=== PATIENT | male | born 1945 | race African-American/Black ===

== ENCOUNTER 2024-08-29 14:06 | Emergency (ER) | payer OTHER ==
[~2024-08-29] VITALS: Ht 170.2 cm; Wt 69.0 kg
[2024-08-29 14:18] VITALS: TEMP 37.3; O2SAT 98
[2024-08-29] MEDS ORDERED: NAPR-677 MT (16:00)
[2024-08-29 22:22] VITALS: BP 153/72; PULSE 63; RESP 16; O2SAT 98
== END 2024-08-29 22:22 | disposition home or self-care (01) ==
LOC: ER 14:06
DX: S09.8XXA Other specified injuries of head, initial encounter (principal); E11.9 Type 2 diabetes mellitus without complications; I10 Essential (primary) hypertension; I67.82 Cerebral ischemia; Z79.1 Long term (current) use of non-steroidal anti-inflammatories (NSAID); W19.XXXA Unspecified fall, initial encounter; Y93.89 Activity, other specified; Y92.129 Unspecified place in nursing home as the place of occurrence of the external cause; Y99.8 Other external cause status
CPT/HCPCS: 72170; 99284

== ENCOUNTER 2024-11-09 08:24 | Inpatient (IN) | payer MEDICARE, OTHER ==
[~2024-11-09] VITALS: Ht 167.6 cm; Wt 60.4 kg
[~2024-11-09 08:24] MED LIST: NAPR-677 MT
[2024-11-09 08:26] VITALS: O2SAT 97
[2024-11-09 09:35] LABS: CREATININE 0.8 mg/dL (0.6-1.3); UREA NITROGEN BLOOD 19 mg/dL (9-23)
[2024-11-09 09:36] LABS: ETHANOL BLOOD < 10 mg/dL (<10); TROPONIN I HIGH SENSITIVITY 4 ng/L (3.0-53)
[2024-11-09 09:50] LABS: BASOPHILS % 0.3 % (0.0-2.0); EOSINOPHILS % 1.3 % (0.0-5.0); HEMATOCRIT. 40.7 % (42.0-52.0); HEMOGLOBIN. 13.3 g/dL (14.0-18.0); LYMPHOCYTES % 14.5 % (20.0-50.0); MEAN PLATELET VOLUME 9.8 fl (7.4-10.4); MONOCYTES % 8.6 % (2.0-8.0); NEUTROPHILS % 75.3 % (40.0-76.0); PLATELET 216 x1000/uL (130-400); RED BLOOD CELL COUNT 4.74 mill/uL (4.7-6.1); RED CELL DISTRIBUTION WIDTH 15.4 % (11.6-14.6)
[2024-11-09] MEDS ORDERED: ACETAMINOPHEN 325MG TABLET PO PRN (11:00)
[2024-11-09] MEDS ORDERED: HYDROCODONE/ACETAMINOPHEN 5/325MG TABLET PO PRN (11:00)
[2024-11-09] MEDS ORDERED: ONDANSETRON HCL 4MG/2ML INJ IV PRN (11:00)
[2024-11-09] MEDS ORDERED: MAGNESIUM/ALUMINUM HYDROXIDE/SIMETHICONE 30ML UDC PO PRN (11:00)
[2024-11-09] MEDS ORDERED: DEXTROSE 50% WATER 50ML SYRINGE IV PRN (11:00)
[2024-11-09] MEDS ORDERED: NALOXONE HCL 0.4MG/ML VIAL IV PRN (11:00)
[2024-11-09] MEDS ORDERED: ZOLPIDEM TARTRATE 5MG TABLET PO PRN (11:00)
[2024-11-09 11:15] VITALS: BP 124/80; PULSE 59; RESP 17; TEMP 36.0844
[2024-11-09 12:07] VITALS: BP 124/80; PULSE 58; RESP 17; TEMP 35.9; O2SAT 99
[2024-11-09] MEDS: BLOOD SUGAR DIAGNOSTIC STRIP TEST SCH (12:20)
[2024-11-09] MEDS: DEXT 5%/0.45% NACL 1000ML 1,000 ML IV SCH (12:29)
[2024-11-09] MEDS: ENOXAPARIN 40MG/0.4ML SYR SUBCUT SCH (12:29)
[2024-11-09] MEDS: CEFTRIAXONE 1GM/50ML 50 ML IV SCH (14:00)
[2024-11-09] MEDS: INSULIN LISPRO 100 UNITS/ML SUBCUT SCH (14:01)
[2024-11-09 16:00] VITALS: BP 128/52; PULSE 57; RESP 17; TEMP 36.1; O2SAT 98
[2024-11-09 20:00] VITALS: BP 125/63; PULSE 61; RESP 18; TEMP 35.7; O2SAT 97
[2024-11-10] VITALS: BP 133/60; PULSE 61; RESP 20; TEMP 37.1; O2SAT 98
[2024-11-10 00:20] LABS: CLARITY URINE CLEAR (CLEAR); COLOR URINE YELLOW (YELLOW); GLUCOSE URINE TRACE (NEGATIVE); KETONES URINE NEGATIVE (NEGATIVE); LEUKOCYTE ESTERASE URINE 2+ (NEGATIVE); NITRITE URINE POSITIVE (NEGATIVE); OCCULT BLOOD URINE NEGATIVE (NEGATIVE); PH URINE 6.5 (4.5-8.0); PROTEIN URINE NEGATIVE (NEGATIVE); SPECIFIC GRAVITY URINE 1.015 (1.005-1.030); UROBILINOGEN URINE 0.2 E.U./dL (0.2-1.0)
[2024-11-10 00:45] LABS: *AMPHETAMINES SCREEN URINE NEGATIVE (NEGATIVE); *BARBITURATES SCREEN URINE NEGATIVE (NEGATIVE); *BENZODIAZEPINES SCREEN URINE NEGATIVE (NEGATIVE); *COCAINE SCREEN URINE NEGATIVE (NEGATIVE); CANNABINOID URINE SCREEN NEGATIVE (NEGATIVE); METHADONE URINE SCREEN NEGATIVE (NEGATIVE); OPIATES URINE SCREEN NEGATIVE (NEGATIVE); PHENCYCLIDINE URINE SCREEN NEGATIVE (NEGATIVE)
[2024-11-10 00:46] LABS: ECSTASY MDMA SCREEN URINE NEGATIVE (NEGATIVE)
[2024-11-10 01:44] LABS: WBC URINE 0-2 /hpf (0-2)
[2024-11-10 01:45] LABS: RBC URINE 0-2 /hpf (0-2)
[2024-11-10 01:47] LABS: BACTERIA URINE 1+; SQUAMOUS EPITHELIAL CELL URINE FEW /lpf (RARE/1+)
[2024-11-10 04:00] VITALS: BP 120/62; PULSE 75; RESP 20; TEMP 36.4; O2SAT 98
[2024-11-10] MEDS: INSULIN LISPRO 100 UNITS/ML SUBCUT SCH (06:52)
[2024-11-10 08:37] LABS: BASOPHILS % 0.3 % (0.0-2.0); EOSINOPHILS % 2.5 % (0.0-5.0); HEMATOCRIT. 35.7 % (42.0-52.0); HEMOGLOBIN. 11.7 g/dL (14.0-18.0); LYMPHOCYTES % 21.4 % (20.0-50.0); MEAN PLATELET VOLUME 10.3 fl (7.4-10.4); MONOCYTES % 8.4 % (2.0-8.0); NEUTROPHILS % 67.4 % (40.0-76.0); PLATELET 180 x1000/uL (130-400); RED BLOOD CELL COUNT 4.15 mill/uL (4.7-6.1); RED CELL DISTRIBUTION WIDTH 15.2 % (11.6-14.6)
[2024-11-10] MEDS: PANTOPRAZOLE SODIUM 40 MG/VIAL IV SCH (08:47)
[2024-11-10 08:55] LABS: CREATININE 1.1 mg/dL (0.6-1.3); UREA NITROGEN BLOOD 19 mg/dL (9-23)
[2024-11-10 08:59] VITALS: BP 129/65; PULSE 55; RESP 15; TEMP 36.3; O2SAT 96
[2024-11-10 12:00] VITALS: BP 128/63; PULSE 55; RESP 18; TEMP 36.3; O2SAT 100
[2024-11-10 16:00] VITALS: BP 127/64; PULSE 36; RESP 18; TEMP 36.3; O2SAT 100
[2024-11-10 20:00] VITALS: BP 183/80; PULSE 54; RESP 19; TEMP 36.1; O2SAT 96
[2024-11-10] MEDS: INSULIN GLARGINE 100 UNITS/ML SUBCUT SCH (23:05)
[2024-11-11] VITALS: BP 137/68; PULSE 57; RESP 20; TEMP 36.2; O2SAT 97
[2024-11-11 04:00] VITALS: BP 174/77; PULSE 52; RESP 18; TEMP 36.1; O2SAT 96
[2024-11-11] MEDS: CLONIDINE 0.1MG TABLET PO PRN (05:01)
[2024-11-11 08:00] VITALS: BP 158/75; PULSE 51; RESP 15; TEMP 36.2; O2SAT 94
[2024-11-11 09:01] LABS: BASOPHILS % 0.4 % (0.0-2.0); EOSINOPHILS % 0.3 % (0.0-5.0); HEMATOCRIT. 36.5 % (42.0-52.0); HEMOGLOBIN. 12.1 g/dL (14.0-18.0); LYMPHOCYTES % 15.2 % (20.0-50.0); MEAN PLATELET VOLUME 10.1 fl (7.4-10.4); MONOCYTES % 7.8 % (2.0-8.0); NEUTROPHILS % 76.3 % (40.0-76.0); PLATELET 183 x1000/uL (130-400); RED BLOOD CELL COUNT 4.28 mill/uL (4.7-6.1); RED CELL DISTRIBUTION WIDTH 15.1 % (11.6-14.6)
[2024-11-11 09:08] LABS: CREATININE 1.1 mg/dL (0.6-1.3)
[2024-11-11 09:09] LABS: UREA NITROGEN BLOOD 21 mg/dL (9-23)
[2024-11-11 12:00] VITALS: BP 112/51; PULSE 59; RESP 18; TEMP 37; O2SAT 98
[2024-11-11 16:00] VITALS: BP 112/54; PULSE 64; RESP 18; TEMP 36.5; O2SAT 97
[2024-11-11 20:00] VITALS: BP 111/69; PULSE 60; RESP 18; TEMP 36.4; O2SAT 97
[2024-11-11] MEDS: INSULIN GLARGINE 100 UNITS/ML SUBCUT SCH (22:26)
[2024-11-12] VITALS: BP 132/53; PULSE 58; RESP 18; TEMP 36.4; O2SAT 96
[2024-11-12 04:00] VITALS: BP 144/57; PULSE 54; RESP 17; TEMP 36.5; O2SAT 96
[2024-11-12 08:00] VITALS: BP 136/66; PULSE 52; RESP 16; TEMP 36.1; O2SAT 96
[2024-11-12 08:27] LABS: CREATININE 1.1 mg/dL (0.6-1.3); UREA NITROGEN BLOOD 20 mg/dL (9-23)
[2024-11-12 08:28] LABS: BASOPHILS % 0.6 % (0.0-2.0); EOSINOPHILS % 1.0 % (0.0-5.0); HEMATOCRIT. 37.4 % (42.0-52.0); HEMOGLOBIN. 12.4 g/dL (14.0-18.0); LYMPHOCYTES % 20.0 % (20.0-50.0); MEAN PLATELET VOLUME 10.6 fl (7.4-10.4); MONOCYTES % 10.3 % (2.0-8.0); NEUTROPHILS % 68.1 % (40.0-76.0); PLATELET 161 x1000/uL (130-400); RED BLOOD CELL COUNT 4.37 mill/uL (4.7-6.1); RED CELL DISTRIBUTION WIDTH 15.0 % (11.6-14.6)
[2024-11-12] MEDS: FAMOTIDINE 20MG TABLET PO SCH (08:38)
[2024-11-12 11:33] VITALS: BP 114/59; PULSE 67; RESP 18; TEMP 97.7
[2024-11-12 12:00] VITALS: BP 114/59; PULSE 67; RESP 18; TEMP 36.5; O2SAT 95
== END 2024-11-12 13:05 | DRG 637 ==
LOC: ER 08:28 → 6WST 09:23 → ENRESERV 09:40
PROVIDERS: ADMIT Internal Medicine; ATTEND Internal Medicine
DX: E11.649 Type 2 diabetes mellitus with hypoglycemia without coma (principal); G92.8 Other toxic encephalopathy; E87.0 Hyperosmolality and hypernatremia; N39.0 Urinary tract infection, site not specified; E86.0 Dehydration; Y90.9 Presence of alcohol in blood, level not specified; E78.5 Hyperlipidemia, unspecified; I10 Essential (primary) hypertension; F10.20 Alcohol dependence, uncomplicated; T43.625A Adverse effect of amphetamines, initial encounter; Y92.89 Other specified places as the place of occurrence of the external cause
CPT/HCPCS: 36415; 71045; 80048; 80305; 80320; 81003; 82962; 83036; 84443; 84484; 85025; 87077; 87186; 93970; 97162; 99291; A4606; J0696; J1650; J1815; J2470; G0480